=== PATIENT | male | born 1955 | race Caucasian/White ===

== ENCOUNTER 2018-03-28 19:04 | Observation (INO) | payer OTHER ==
[~2018-03-28] VITALS: Ht 177.8 cm; Wt 98.4 kg
[2018-03-28 19:06] VITALS: BP 157/88
[2018-03-28] MEDS ORDERED: EFFIENT10 MG PO (19:11)
[2018-03-28 19:20] LABS: ABSOLUTE EOSINOPHILS 0.2 thou/uL (0.0-0.7); ABSOLUTE LYMPHOCYTES 2.4 thou/uL (0.8-5.3); ABSOLUTE NEUTROPHILS 5.8 thou/uL (1.6-8.1); BASOPHILS 0.4 %; EOSINOPHILS 2.3 %; HEMATOCRIT 41.6 % (42.0-52.0); HEMOGLOBIN 13.8 gm/dL (14.0-18.0); LYMPHOCYTES 25.2 %; MCH 30.1 pg (26.0-34.0); MCHC 33.3 g/dL (28.0-37.0); MCV 90.3 fL (80.0-100.0); MONOCYTES 10.3 %; NUCLEATED RBCS 0 /100WBC; PLATELET COUNT* 287 thou/uL (150-400); POLYS 61.8 %; RBC 4.61 mil/uL (4.50-6.00); WBC 9.5 thou/uL (4.0-11.0)
[2018-03-28] MEDS ORDERED: ZETIA10 MG PO (19:22)
[2018-03-28] MEDS ORDERED: PROTONIX40 M2 PO (19:23)
[2018-03-28] MEDS ORDERED: LIPITOR80 MG PO (19:24)
[2018-03-28] MEDS ORDERED: FENOFIBRATE160 MG PO (19:25)
[2018-03-28] MEDS ORDERED: LISINOPRIL10 MG PO (19:29)
[2018-03-28 19:30] LABS: ANION GAP 10 mmol/L (7-16); BUN 29 mg/dL (7-18); CHLORIDE 108 mmol/L (98-107); CO2 27 mmol/L (21-32); CREATININE 1.5 mg/dL (0.6-1.3); GLUCOSE 118 mg/dL (70-99); POTASSIUM 3.9 mmol/L (3.5-5.1); SODIUM 145 mmol/L (136-145)
[2018-03-28] MEDS ORDERED: LOPRESSOR25 PO (19:30)
[2018-03-28] MEDS ORDERED: IMDUR 60 MG TAB60 M1 PO (19:30)
[2018-03-28] MEDS ORDERED: ASPIR 8181 MG PO (19:31)
[2018-03-28 19:37] LABS: ALBUMIN 3.9 g/dL (3.4-5.0); ALKALINE PHOSPHATASE 68 U/L (46-116); APTT 26.3 Seconds (25.0-31.3); INR 1.1; PROTIME 10.6 Seconds (9.20-11.50); SGOT 30 U/L (15-37); SGPT 35 U/L (30-65); TOTAL BILIRUBIN 0.7 mg/dL (<0.1-1.0); TOTAL PROTEIN 7.1 g/dL (6.4-8.2); TROPONIN-I LEVEL <0.06 ng/mL (<0.06)
[2018-03-28 21:31] VITALS: BP 100/64
[2018-03-28 22:00] VITALS: BP 123/68
[2018-03-28 23:31] VITALS: BP 126/68
[2018-03-29] MEDS ORDERED: GABAPENTIN 100100 MG PO (02:41)
[2018-03-29] MEDS ORDERED: RANEXA1000 MG PO (02:42)
--- NOTE | 2018-03-29 03:35 | NUR ---
PATIENT ADMIT TO ROOM 201 AT 2155. ALERT AND ORIENTED. PT STATES DIZZYNESS. UP WITH STAND BY ASSIST. STEADY GAIT. NIH 0. TELMETRY SHOWS SR. WILL CONTINUE TO MONITOR.
[2018-03-29 04:12] VITALS: BP 115/68
[2018-03-29 07:51] VITALS: BP 136/78
--- NOTE | 2018-03-29 08:21 | NUR ---
ASSUMED CARE OF PT THIS AM AROUND 07- DISTRICT SUPERINTENDENT IN PLACE ORDERED, TRACING SR- UPON ASSESSMENT PT NOTED TO BE RESTING IN BED, WATCHING TV- PT A&O X4- CONTINENT OF BOWEL AND BLADDER- UP AD-ARYAN WITH STEADY GAIT NOTED- LCTA, RESP EVEN AND UN-LABORED- VSS, O2 SAT 94% ON RA- NO C/O DYSPNEA NOTED- ABDOMEN SOFT/FLAT/NON-TENDER, BS X4 QUADS- PT REPORTS LAST BM 03/28/18- GOOD PO INTAKE NOTED THIS AM- IV NOTED TO RIGHT AC AND RIGHT FA INTACT AND SL- NIH Q 4 HOURS PRESCIBED, NOTED AT 0 THIS AM- PT DENIES ANY C/O PAIN/DISCOMFORT AT THIS TIME- CALL LIGHT AND PERSONAL BELONGINGS WITH IN REACH- HOURLY ROUNDS IN PLACE R/T SAFETY/NEEDS- ALL NEEDS MET AT THIS TIME-WCTM
--- NOTE | 2018-03-29 08:36 | EKG ---
[place] [address] ELECTROCARDIOGRAM REPORT Name: PASHA RICHARDSON Room: [address] IN [facility].#: [id number] Admission: 03/28/18 Attend Phys: Emiliano Boston MD Discharge: Date of : 53 Report #: [id number] THIS REPORT FOR: //name// [facility] ED Test Date: 2018-03-28 Test Time: 19:07:37 Pat Name: PASHA DRISCOLLATT Department: Room: Gender: Compensation Advisor: : 1955 Requested By: Julius Pena Order Number: [id number] MD: Bridger Najera Measurements Intervals [place] Rate: 86 P: 41 [place]: 159 QRS: 48 QRSD: 92 T: 39 QT: 403 QTc: 482 Interpretive Statements Sinus rhythm Borderline low voltage, extremity leads Borderline prolonged QT interval No previous ECG available for comparison Electronically Signed On 03-29-2018 8:35:51 CDT by Bridger Najera [email or web address] <ELECTRONICALLY SIGNED> By: Bridger Najera MD, [facility] 03/29/18 0835 06 06 Brigder Najera MD, FACC /EPI
[2018-03-29 10:07] VITALS: BP 136/78
--- NOTE | 2018-03-29 10:43 | NUR ---
HERE TO SEE PT AT SIDE, AND STATES THAT HE IS OKAY WITH D/C OF PT THIS SHIFT- PT REQUESTING TO G[facility]ERTO D/C AND ANXIOUS AND WANTING TO LEAVE- HERE TO SEE PT WITH ORDERS RECIEVED FOR OKAY TO D/C THIS SHIFT WITH F/U TO PCP IN 1 WEEK- D/C TREACHING/EDUCATION GIVEN TO PT PRIOR TO D/C WITH ALL QUESTIONS AND CONCERNS ADDRESSED PRIOR TO D/C- AT SIDE AT TIME OF D/C- WRITTEN EDUCATION PROVIDED TO PT- IV TO RIGHT FA AND RIGHT AC D/C'D PRIOR TO D/C ALONG WITH SENIOR IT AUDITOR- BELONGINGS PACKED AND ACCOUNTED FOR PER PT AND SENT HOME WITH PT AT TIME OF D/C- PT ESCORTED WITH BELONGINGS, AT SIDE AT 1043 TO VEHICLE- NO PROBLEMS TO NOTE AT TIME OF D/C
--- NOTE | 2018-04-01 22:15 | CON ---
[facility] [address] [place] [address] CONSULTATION Name: PASHA RICHARDSON Room: [address] [employer] [facility]#: [id number] Admission: 03/28/18 Attend Phys: Emiliano Bostno MD Discharge: 03/29/18 Date of : 53 Report #: [id number] THIS REPORT FOR: //name// CC: Emiliano Culp DATE OF SERVICE: 03/29/2018 HISTORY OF PRESENT ILLNESS: This is a 62-year-old male patient who was evaluated by me to look for any neurological etiology for the patient's dizziness. The patient gives a history that he is on multiple medications for his cardiac problems. He felt dizzy. He thought it was his heart, so he took his nitroglycerin. He does not know what the blood pressure was but when he came here, his blood pressure was low. I reviewed the patient's records in the Emergency Room and looks like blood pressure was as low as 79 systolic. He was given fluid bolus. His dizziness, in fact, all the symptoms have resolved. He did have some tingling at the same time and that has also resolved. Symptoms were moderately severe when it happened and was associated with tingling as described above. REVIEW OF SYSTEMS: Positive for very prominent cardiac history. He follows up with his upper cutter machine and he had a large last angioplasty just a few weeks ago. He has a strong family history of cardiac problems. He said he is a prediabetic. He denies any prior history of stroke. I carried out 14-point review of system in this patient. It was otherwise noncontributory. He feels back to his baseline and he does not believe that he has any new eye, ENT, cardiac, respiratory, GI, , musculoskeletal, constitutional, dermatological, hematological, psychiatric, throat or allergic symptom associated with present symptomatology. PAST MEDICAL HISTORY: Positive for very severe cardiac problem. FAMILY HISTORY: Positive for cardiac problem. SOCIAL HISTORY: He does not smoke, but he drinks considerable amount of alcohol. PHYSICAL EXAMINATION: NEUROLOGICAL: Indicate he is alert, responsive and oriented. His speech, concentration, fund of knowledge and memory is at his baseline. Cranial nerve examination 2 through 12 is unremarkable. He has symmetrical strength, sensation, reflexes and tones in all four extremities. His reflexes are well elicitable. There is no cerebellar sign. There is no papilledema. There is no carotid bruit. CARDIAC: Clinically looks unremarkable. RESPIRATORY: No respiratory [place] [address] CONSULTATION Name: PASHA RICHARDSON Room: [address] [place]#: [id number] Admission: 03/28/18 Attend Phys: Emiliano Boston MD Discharge: 03/29/18 Date of : 53 Report #: [id number] GENERAL: He is an average individual who does not have any dysmorphic features of eyes, ears and face. HEENT: His vision and hearing looks adequate. EXTREMITIES: His pulses are palpable. VITAL SIGNS: His last blood pressure is 136/78, his pulse is 72 and temperature is 97.9. LABORATORY DATA: His labs indicate white count of 9.5 and his sodium is 145 and creatinine is somewhat high at 1.5. RADIOLOGICAL DATA: He did have a CT angio of the head and neck and that was reviewed and that was unremarkable. IMPRESSION: It is unlikely that there is any neurological etiology for the patient's symptoms. Symptoms appeared to be more secondary to postural hypotension or hypertension in general. His CT angiogram is clean. He adamantly refuses MRI because he thinks he cannot do that and in fact adamantly insists that he wants to go home this morning. He is asymptomatic at the moment. RECOMMENDATIONS: 1. I will suggest considering putting him on a full dose of aspirin. 2. Present episode does not appear to be TIA or stroke, but I cannot fully exclude that but without doing MRI. The patient adamantly refused to do the MRI. He is competent to make his decision. He does not want to do even an open MRI. In that circumstances, I do not think we need to do any further neurological workup and we will sign off. Main emphasis should be to evaluate and manage his systemic problem. Thank you very much for this referral and if you have any question, please feel free to contact me. <ELECTRONICALLY SIGNED> By: Migue Bowden MD 04/01/18 2215 0944 0100Migue Bowden MD /nt
== END 2018-03-29 10:43 | disposition home or self-care (01) ==
LOC: M.ERS 19:04 → M.TBA-ER 21:14 → M.2W 21:14
PROVIDERS: Family Medicine; ADMIT Internal Medicine
DX: I95.1 Orthostatic hypotension (principal); G45.9 Transient cerebral ischemic attack, unspecified; E86.9 Volume depletion, unspecified; R20.2 Paresthesia of skin; I25.118 Atherosclerotic heart disease of native coronary artery with other forms of angina pectoris; I12.9 Hypertensive chronic kidney disease with stage 1 through stage 4 chronic kidney disease, or unspecified chronic kidney disease; N18.3 Chronic kidney disease, stage 3 (moderate); Z72.89 Other problems related to lifestyle; Z95.5 Presence of coronary angioplasty implant and graft

== ENCOUNTER → 2020-07-06 | Outpatient (CLI) | payer OTHER ==
[~2020-07-06] MED LIST: ASPIR 8181 MG PO; B COMPLEX1 EACH PO; EFFIENT10 MG PO; FENOFIBRATE160 MG PO; GABAPENTIN 100100 MG PO; IMDUR 60 MG TAB60 M1 PO; LIPITOR80 MG PO; LISINOPRIL10 MG PO; LOPRESSOR25 PO; PROTONIX40 M2 PO; RANEXA1000 MG PO; RANEXA500 MG PO; ZETIA10 MG PO
== END ==
LOC: M.LAB 12:25
PROVIDERS: ATTEND Internal Medicine Gastroenterology
DX: Z01.812 Encounter for preprocedural laboratory examination (principal); Z11.59 Encounter for screening for other viral diseases; R10.13 Epigastric pain

== ENCOUNTER → 2020-07-13 | Day surgery (SDC) | payer OTHER ==
--- NOTE | ~2020-07-13 | PROC ---
[address] [address] PROCEDURE REPORT Name: PASHA RICHARDSON Room: [facility]#: [id number] Admission: 07/13/20 Attend Phys: Kenton Gustafson MD Discharge: Date of : 53 Report #: [id number] THIS REPORT FOR: //name// cc: Elsa Joy Linda J. DO ~ THIS REPORT FOR: //name// For GI report, please see the Provation report in Perceptive 7 content. By: 0700Medical Records Staff LUIS /YASSINE
[2020-07-13 09:39] LABS: HEMATOCRIT 45.5 % (42.0-52.0); HEMOGLOBIN 15.4 gm/dL (14.0-18.0); MCH 30.7 pg (26.0-34.0); MCHC 33.8 g/dL (28.0-37.0); MCV 90.9 fL (80.0-100.0); MPV 10.3 fl. (7.2-11.1); RBC 5.01 mil/uL (4.50-6.00); RDW-CV 14.6 % (10.5-14.5)
[2020-07-13 09:56] LABS: CALCIUM 9.1 mg/dL (8.5-10.1); CREATININE 1.1 mg/dL (0.6-1.3); POTASSIUM 3.8 mmol/L (3.5-5.1)
--- NOTE | 2020-07-13 10:30 | EKG ---
[place] [address] ELECTROCARDIOGRAM REPORT Name: PASHA RICHARDSON Room: [facility]#: [id number] Admission: 07/13/20 Attend Phys: Kenton Gustafson MD Discharge: Date of : 53 Date of Service: 07/13/2004 Report #: [id number] THIS REPORT FOR: //name// [facility] Test Date: 2020-07-13 Test Time: 09:04:05 Pat Name: PASHA RICHARDSON Department: Room: Gender: Facilities Operations Technician: : 1955 Requested By: Kenton Gustafson Order Number: [id number] Reading MD: Angelo Mares Measurements Intervals [place] Rate: 58 P: 47 [place]: 159 QRS: 36 QRSD: 88 T: 75 QT: 461 QTc: 453 Interpretive Statements Sinus rhythm Low voltage, extremity leads Compared to ECG 03/28/2018 19:07:37 No significant changes Electronically Signed On 07-13-2020 10:30:05 CDT by Angelo Mares [email or web address] <ELECTRONICALLY SIGNED> By: Angelo Mares MD, [facility] 07/13/20 1030 0904 0904 Angelo Mares MD, [facility] /EPI
--- NOTE | 2020-07-15 17:06 | PATH ---
[facility] [address] [place] [address] PATHOLOGY RPT PROCEDURE Name: PASHA RICHARDSON Room: [facility].#: [id number] Admission: 07/13/20 Date of : 53 Discharge: Report #: [id number] Path Case #: [id number] [facility] Accession Number: [id number] . 01 Material submitted: . esophagus - DISTAL ESOPHAGUS BIOPSY. Modifiers: distal . 01 Clinical history: . Epigastric discomfort rule out Castellanos's . 02 Diagnosis: Esophagus "distal", endoscopic biopsy: - Esophageal squamous and gastric cardia mucosa with features of nonspecific chronic esophagitis. - Negative for intestinal metaplasia, dysplasia, and malignancy. . (MLK:pit; 07/15/2020) QTP 07/15/2020 1618 Local . 02 Electronically signed: . Delisa Hernandez MD, Pathologist NPI- [id number] . 01 Gross description: . The specimen is received in formalin, labeled "Randy, Pasha, distal esophagus BX" and consists of 2 fragments of pink-bautista tissue measuring 0.3 x 0.2 cm and 0.4 x 0.2 cm which are entirely submitted in A1. (SDY; 07/14/2020) SYU/SYU 07/14/2020 1048 Local . 02 Pathologist provided ICD-10: R10.13 . 02 CPT . 468960 Specimen Comment: A courtesy copy of this report has been sent to [phone], [phone] Specimen Comment: [id number] Specimen Comment: Report sent to / DR MARSH Performed at: 01 [facility] [address] [id number] MD Scott Osborne MD Phone: [phone] Performed at: 02 [facility] [address] [place] [address] [id number] MD Dameon Cruz MD Phone: [phone]
== END | disposition home or self-care (01) ==
LOC: M.SUR 08:43
PROVIDERS: ATTEND Internal Medicine Gastroenterology
DX: R10.13 Epigastric pain (principal); R13.10 Dysphagia, unspecified; K44.9 Diaphragmatic hernia without obstruction or gangrene; K31.89 Other diseases of stomach and duodenum; K21.0 Gastro-esophageal reflux disease with esophagitis; Z79.899 Other long term (current) drug therapy; Z98.890 Other specified postprocedural states